=== PATIENT | female | born 1955 | race Two or more races ===

== ENCOUNTER 2021-02-12 14:07 | Emergency (ER) | payer SELFPAY ==
[~2021-02-12] VITALS: Ht 152.4 cm; Wt 90.9 kg
--- NOTE | 2021-02-12 14:29 | PHYS DOC ---
Past Medical History Past Medical History: Hypertension Past Surgical History: No Surgical History Smoking Status: Never Smoker Alcohol Use: None Drug Use: None General Adult EDM: Chief Complaint: SYNCOPE HPI: HPI: Patient is a 65 year old female who presents via EMS after a fall. She is here visiting from [place], she has only been here for the past several days, was planning to stay here through [place]. She was at the [employer], shopping, and she tripped and fell down about 3 steps. She hit the back of her head. Loss of consciousness was reported, however this was disputed by the patient and her family. She did not lose consciousness. There is no reported syncope. The report was a trip and slip and mechanical fall on arrival, EMS reports that she was awake, alert, crying but conversant. She was placed in a c-collar. The patient denies chest pain, dyspnea, palpitations, abdominal pain, nausea, vomiting. She does report some mild headache pain at her laceration site. She denies vision loss, vision changes. She denies neck pain or back pain. She den ies numbness or tingling or motor weakness. She reports that she was feeling well prior to this. She denies dizziness or vertigo. Review of Systems: Review of Systems: Constitutional: Denies fever or chills. [] Eyes: Denies change in visual acuity denies vision loss. HENT: Denies nasal congestion or sore throat. [] Respiratory: Denies cough or shortness of breath. [] Cardiovascular: Denies chest pain or edema, denies palpitations GI: Denies abdominal pain, nausea, vomiting, diarrhea : Denies incontinence or urinary symptoms. Musculoskeletal: Denies back pain or joint pain. [] Integument: Scalp laceration Neurologic: Reports headache at laceration site only, no global headache. He denies focal weakness or sensory changes. [] Psychiatric: Anxiety as it pertains to current clinical condition [] Heart Score: C/O Chest Pain: No Risk Factors: Risk Factors: DM, Current or recent (<one month) smoker, HTN, HLP, family history of CAD, obesity. Risk Scores: Score 0 - 3: 2.5% MACE over next 6 weeks - Discharge Home Score 4 - 6: 20.3% MACE over next 6 weeks - Admit for Clinical Observation Score 7 - 10: 72.7% MACE over next 6 weeks - Early Invasive Strategies Allergies: Allergies: Allergies Coded Allergies Type Severity Reaction Last Updated Verified No Known Drug Allergies 02/12/21 No Physical Exam: PE: Constitutional: Well developed, well nourished, no acute distress, non-toxic appearance. [] HENT: There is a small to moderate cephalhematoma on the right posterior parietal scalp, with overlying small laceration, approximately 1.5 cm, with minimal oozing, no brisk or active bleeding. Mild soft tissue tenderness. There is no palpable crepitus or step-offs. Oropharynx is patent and clear, mucous membranes are moist, no dental trauma noted. TMs are clear bilaterally, no hemotympanum. No otorrhea. Nares are patent without rhinorrhea or epistaxis. No midface or facial trauma or injury, no soft tissue swelling is noted. Eyes: PERRL, EOMI, conjunctiva normal, no discharge. No nystagmus. Neck: Normal range of motion, no tenderness, supple, no stridor. No soft tissue or bony tenderness, no midline tenderness or step-offs. Trachea is midline, no JVD Cardiovascular:Heart rate regular rhythm, +2 radial and +2 dorsalis pedis pulses bilaterally. Lungs & Thorax: Bilateral breath sounds clear to auscultation [] Abdomen: Bowel sounds normal, soft, no tenderness, no masses, no pulsatile masses. [] Skin: Small to moderate cephalhematoma on the right posterior parietal scalp, superficial laceration of the scalp, as above. Back: No tenderness, no deformity, no step-offs, no evidence of trauma Extremities: No tenderness, no cyanosis, no clubbing, ROM intact, no edema. No calf tenderness. Pelvis is stable. Full painless range of motion of bilateral upper and lower extremities. Neurologic: She is awake, alert, oriented x3, no facial asymmetry, speech is clear and fluent, 5 out of 5 motor strength all 4 extremities, sensation is grossly intact. Psychologic: She is anxious and tearful, she is cooperative and pleasant.. [] Current Patient Data: Labs: Laboratory Tests Test 02/12/21 14:13 Glucose (Fingerstick) 106 mg/dL (70-99) H EKG: EKG: EKG is interpreted at 1416 Rhythm is sinus Rate is 90 bpm [place] is normal No STEMI Radiology/Procedures: Radiology/Procedures: IMAGING REPORT Signed PATIENT: WINNIE CONNELLUNT: [id number] : 1955 LOCATION: ER AGE: 65 SEX: F EXAM STATUS: PRE ER ORD. PHYSICIAN: BAILEY COTA DO REASON: fall, scalp lac PROCEDURE: CT HEAD AND CERVICAL SPINE WO CT HEAD WITHOUT CONTRAST 02/12/2021 2:37 PM Indication: Reason: fall, scalp lac / Spl. Instructions: / History: Comparison: None Procedure: Multidetector CT imaging of the head was performed without the administration of contrast. Findings: There is a right posterior scalp hematoma and laceration. There is no evidence of acute intracranial hemorrhage. There is no evidence of acute territorial infarction. Please note that CT is limited for evaluation of acute ischemia. No mass effect or midline shift is identified . The ventricles and basilar cisterns have an appropriate appearance. No abnormal extra-axial fluid collections are seen. No acute osseous changes are identified. Impression: No evidence of acute intracranial abnormality CT cervical spine without contrast. 02/12/2021 2:37 PM Indication:Reason: fall, scalp lac / Spl. Instructions: / History: Comparison Study: None Technique: Multidetector CT imaging of the cervical spine was obtained without administration of contrast. Findings: There is no evidence of acute fracture or alignment abnormality of the cervical spine.. Vertebral body heights are maintained. There is degenerative change of the cervical spine including posterior disc/osteophyte complex at C5- C6. Mild diffuse facet arthrosis is noted. The atlantoaxial articulation and craniocervical junctions are intact. There is no prevertebral soft tissue swelling. Soft tissues are otherwise unremarkable. No bony compromise of the spinal canal is seen. Impression: No evidence of acute fracture or alignment abnormality of the cervical spine CT DOSING PQRS STATEMENT: One or more of the following individualized dose reduction techniques were utilized for this examination: 1. Automated exposure control 2. Adjustment of the mA and/or kV according to patient size 3. Use of iterative reconstruction technique Electronically signed by: Willard Noriega MD (02/12/2021 2:56 PM) [id number] DICTATED and SIGNED BY: WILLARD NORIEGA MD DATE: 02/12/21 [id number] Course & Med Decision Making: Course & Med Decision Making Pertinent Labs and Imaging studies reviewed. (See chart for details) I discussed the findings, differential diagnosis and plan of care with the patient. Emergency department work-up is unremarkable for any acute life- threatening process. I confirmed with the patient as well as multiple family members, that she did not sustain syncope or loss of consciousness, this was witnessed mechanical fall. She tolerated laceration repair well. She is anxiously awaiting discharge home. Her blood pressure is improved. She is smiling, resting comfortably, she feels much better. She declined any pain medicine here. I discussed home care and wound care instructions. The patient will be here until 21 February, she may return in approximately 1 week to have geno removed. Her grandson will make sure she returns here for this purpose. Very strict return precautions are given, the patient and her family verbalized understanding. Dragon Disclaimer: Dragon Disclaimer: This electronic medical record was generated, in whole or in part, using a voice recognition dictation system. Laceration Repair Lac Repair Indication: Scalp laceration Procedure: The patient was placed in the appropriate position, lying on the ED gurney, left lateral recumbent. 1% lidocaine with epinephrine was utilized for anesthesia, adequate anesthesia was achieved the area was then cleaned with Betadine and copiously irrigated with sterile normal saline. The laceration was posed utilizing 2 geno. Adequate hemostasis, wound eversion was achieved. Total repaired wound length: 1.5 cm The patient tolerated the procedure well Complications: None. Departure Departure Impression: Primary Impression: Fall Additional Impressions: Head injury Scalp laceration Scalp hematoma Disposition: HOME / SELF CARE / HOMELESS Condition: STABLE Patient Instructions: Facial or Scalp Contusion, Fall Prevention and Home Safety, Head Injury, Adult, Laceration Care, Adult Additional Instructions: Return to the ER in 7 or 8 days for staple removal. Return sooner for redness, swelling, pain, temperature 100.4 or higher, if you develop yellow or green wound drainage, if you have any new injury or trauma, shortness of breath, chest pain, vomiting or any other concerns. Keep your wound clean and dry, avoid brushing or combing your hair, gently rinse with water only. Pat dry. BAILEY COTA DO Feb 12, 2021 14:29
[2021-02-12 14:50] LABS: BASO % 1 % (0-3); EOS # 0.2 x10^3/uL (0.0-0.7); EOS % 5 % (0-3); HEMATOCRIT 37.2 % (36.0-47.0); HEMOGLOBIN 12.4 g/dL (12.0-15.5); LYMPH # 1.6 x10^3/uL (1.0-4.8); LYMPH % 34 % (24-48); MEAN CORPUSCULAR HEMOGLOBIN 29 pg (25-35); MEAN CORPUSCULAR HGB CONC 33 g/dL (31-37); MEAN CORPUSCULAR VOLUME 86 fL (79-100); MONO # 0.5 x10^3/uL (0.0-1.1); MONO % 11 % (0-9); NEUT # 2.4 x10^3/uL (1.8-7.7); NEUT % 50 % (31-73); PLATELET COUNT 210 x10^3/uL (140-400); RED BLOOD COUNT 4.33 x10^6/uL (3.50-5.40); RED CELL DISTRIBUTION WIDTH 14.5 % (11.5-14.5); WHITE BLOOD COUNT 4.8 x10^3/uL (4.0-11.0)
--- NOTE | 2021-02-12 14:59 | RAD ---
CT HEAD WITHOUT CONTRAST 02/12/2021 2:37 PM Indication: Reason: fall, scalp lac / Spl. Instructions: / History: Comparison: None Procedure: Multidetector CT imaging of the head was performed without the administration of contrast. Findings: There is a right posterior scalp hematoma and laceration. There is no evidence of acute int racranial hemorrhage. There is no evidence of acute territorial infarction. Please note that CT is li mited for evaluation of acute ischemia. No mass effect or midline shift is identified . The ventricle s and basilar cisterns have an appropriate appearance. No abnormal extra-axial fluid collections are seen. No acute osseous changes are identified. Impression: No evidence of acute intracranial abnormality CT cervical spine without contrast. 02/12/2021 2:37 PM Indication:Reason: fall, scalp lac / Spl. Instructions: / History: Comparison Study: None Technique: Multidetector CT imaging of the cervical spine was obtained without administration of cont rast. Findings: There is no evidence of acute fracture or alignment abnormality of the cervical spine.. [place] tebral body heights are maintained. There is degenerative change of the cervical spine including post erior disc/osteophyte complex at C5-C6. Mild diffuse facet arthrosis is noted. The atlantoaxial artic ulation and craniocervical junctions are intact. There is no prevertebral soft tissue swelling. Soft tissues are otherwise unremarkable. No bony compromise of the spinal canal is seen. Impression: No evidence of acute fracture or alignment abnormality of the cervical spine CT DOSING PQRS STATEMENT: One or more of the following individualized dose reduction techniques were utilized for this examinat ion: 1. Automated exposure control 2. Adjustment of the mA and/or kV according to patient size 3. Use of iterative reconstruction technique Electronically signed by: Willard Tyler MD (02/12/2021 2:56 PM) [id number]
[2021-02-12 15:16] LABS: CALCIUM 8.4 mg/dL (8.5-10.1); CREATININE 0.5 mg/dL (0.6-1.0); GFR 123.1; POTASSIUM 5.1 mmol/L (3.5-5.1)
[2021-02-12 15:22] LABS: ALBUMIN 3.1 g/dL (3.4-5.0); ALBUMIN/GLOBULIN RATIO 0.6 (1.0-1.7); MAGNESIUM 1.9 mg/dL (1.8-2.4); TOTAL BILIRUBIN 0.5 mg/dL (0.2-1.0); TOTAL PROTEIN 7.9 g/dL (6.4-8.2)
--- NOTE | 2021-02-12 15:25 | RAD ---
EXAM: Chest, single view. HISTORY: Syncope. COMPARISON: None. FINDINGS: A frontal view of the chest is obtained. There is no infiltrate, pleural effusion or pneumo thorax. There is a prominent cardiac silhouette, likely accentuated due to portable technique. IMPRESSION: No acute pulmonary finding. Electronically signed by: Bessy Freeman MD (02/12/2021 3:22 PM) [id number]
[2021-02-12] MEDS ORDERED: LIDOCAINE 1%/EPI 1:100,000 20 ML VIAL. INJ ONE (16:00)
[2021-02-12 16:02] VITALS: BP 154/82
--- NOTE | 2021-02-12 18:19 | EKG ---
[facility] [address] [place] [address] Test Date: 2021-02-12 Test Time: 14:16:50 Pat Name: RED Parosnartment: Room: Gender: F [employer]: : 1955 Requested By: BAILEY COTA Order Number: [id number] Reading MD: Measurements Intervals [place] Rate: 90 P: 66 AR: 170 QRS: 53 QRSD: 76 T: 12 QT: 338 QTc: 417 Interpretive Statements SINUS RHYTHM QRS(T) CONTOUR ABNORMALITY CONSIDER ANTEROSEPTAL MYOCARDIAL DAMAGE T ABNORMALITY IN ANTERIOR LEADS ABNORMAL ECG RI6.01 No previous ECG available for comparison
== END 2021-02-12 17:01 | disposition home or self-care (01) ==
LOC: ER 14:07
DX: S01.01XA Laceration without foreign body of scalp, initial encounter (principal); R55 Syncope and collapse; I10 Essential (primary) hypertension; W10.8XXA Fall (on) (from) other stairs and steps, initial encounter; Y93.89 Activity, other specified; Y92.89 Other specified places as the place of occurrence of the external cause; Y99.8 Other external cause status
CPT/HCPCS: 12001; 36415; 70450; 71045; 72125; 80053; 82962; 83735; 84100; 84484; 85025; 93005; 99285; J3490

== ENCOUNTER 2021-02-19 11:47 | Emergency (ER) | payer SELFPAY ==
[~2021-02-19] VITALS: Ht 160 cm; Wt 68.0 kg
[2021-02-19 12:00] VITALS: BP 160/77
--- NOTE | 2021-02-19 13:06 | PHYS DOC ---
Past Medical History Past Medical History: Hypertension Past Surgical History: No Surgical History Smoking Status: Never Smoker Alcohol Use: None Drug Use: None General Adult EDM: Chief Complaint: SUTURE/STAPLE REMOVAL HPI: HPI: Patient is a 65 year old female who presents with staple removal. Patient denies any complications or pain. No signs of infection. Review of Systems: Review of Systems: ROS At least 10 ROS systems have been reviewed and are negative except as documented in the HPI. General: Negative except as outlined in HPI above. Skin: Negative except as outlined in HPI above. HEENT: Negative except as outlined in HPI above. Neck: Negative except as outlined in HPI above. Respiratory: Negative except as outlined in HPI above.. Cardiovascular: Negative except as outlined in HPI above. Abdomen: Negative except as outlined in HPI above. : Negative except as outlined in HPI above. Back/MSK: Negative except as outlined in HPI above. Neuro: Negative except as outlined in HPI above. Psych: Negative except as outlined in HPI above. Heart Score: C/O Chest Pain: No Risk Factors: Risk Factors: DM, Current or recent (<one month) smoker, HTN, HLP, family history of CAD, obesity. Risk Scores: Score 0 - 3: 2.5% MACE over next 6 weeks - Discharge Home Score 4 - 6: 20.3% MACE over next 6 weeks - Admit for Clinical Observation Score 7 - 10: 72.7% MACE over next 6 weeks - Early Invasive Strategies Allergies: Allergies: Allergies Coded Allergies Type Severity Reaction Last Updated Verified No Known Drug Allergies 02/12/21 No Physical Exam: PE: Constitutional: Well developed, well nourished, no acute distress, non-toxic appearance. [] HENT: Normocephalic, atraumatic, bilateral external ears normal, oropharynx moist, no oral exudates, nose normal. [] Eyes: PERRLA, EOMI, conjunctiva normal, no discharge. [] Neck: Normal range of motion, no tenderness, supple, no stridor. [] Cardiovascular:Heart rate regular rhythm, no murmur [] Lungs & Thorax: Bilateral breath sounds clear to auscultation [] Abdomen: Bowel sounds normal, soft, no tenderness, no masses, no pulsatile masses. [] Skin: Geno on the right side of head Back: No tenderness, no CVA tenderness. [] Extremities: No tenderness, no cyanosis, no clubbing, ROM intact, no edema. [] Neurologic: Alert and oriented X 3, normal motor function, normal sensory function, no focal deficits noted. [] Psychologic: Affect normal, judgement normal, mood normal. [] Current Patient Data: Vital Signs: Vital Signs Date Time Temp Pulse Resp B/P (MAP) Pulse Ox O2 Delivery O2 Flow Rate FiO2 02/19/21 12:00 98.2 92 18 160/77 (104) 95 Room Air 98.2 EKG: EKG: [] Radiology/Procedures: Radiology/Procedures: [] Course & Med Decision Making: Course & Med Decision Making Pertinent Labs and Imaging studies reviewed. (See chart for details) [] 65-year-old female presents to the ER for geno removed. No signs of infection noted. Denies pain and complications. Discussed aftercare instructions with patient. Dragon Disclaimer: Dragon Disclaimer: This electronic medical record was generated, in whole or in part, using a voice recognition dictation system. Departure Departure Impression: Primary Impression: Removal of staple Disposition: 01 HOME / SELF CARE / HOMELESS Condition: STABLE Referrals: NO PCP (PCP) Patient Instructions: Staple Removal, Care After Additional Instructions: You were seen in the emergency room for geno removed. Please return the emergency room for worsening symptoms or concerns. EMERGENCY DEPARTMENT GENERAL DISCHARGE INSTRUCTIONS Thank you for coming to [facility] Emergency Department (ED) today and trusting us with you care. We trust that you had a positive experience in our Emergency Department. If you wish to speak to the department management, you may call the Director at [phone]. YOUR FOLLOW UP INSTRUCTIONS ARE FOLLOWS: 1. Do you have a private Doctor? If you do not have a private doctor, please ask for a resource list of physicians or clinics that may be able to assist you with follow up care. 2. The Emergency Physicain has interpreted your x-rays. The X-Ray specialist will also review them. If there is a change in the findings, you will be notified in 48 hours when at all possible. 3. A lab test or culture has been done, your results will be reviewed and you will be notified if you need a change in treatment. ADDITIONAL INSTRUCTIONS AND INFORMATION: 1. Your care today has been supervised by a physician who is specially trained in emergency care. Many problems require more than one evaluation for a complete diagnosis and treatment. We recommend that you schedule your follow up appointment as recommended to ensure complete treatment of you illness or injury. If you are unable to obtain follow up care and continue to have a problem, or if your condition worsens, we recommend that you return to the ED. 2. We are not able to safely determine your condition over the phone nor are we able to give sound medical advice over the phone. For these safety reasons, if you call for medical advice we will ask you to come to the ED for further evaluation. 3. If you have any questions regarding these discharge instructions please call the ED at [phone]. SAFETY INFORMATION: In the interest of safety, wellness, and injury prevention; we encourage you to wear your sealbelt, if you smoke; quite smoking, and we encourage family to use a protective helmet for bicycling and other sporting events that present an increased risk for head injury. IF YOUR SYMPTOMS WORSEN OR NEW SYMPTOMS DEVELOP, OR YOU HAVE CONCERNS ABOUT YOUR CONDITION; OR IF YOUR CONDITION WORSENS WHILE YOU ARE WAITING FOR YOUR FOLLOW UP APPOINTMENT; EITHER CONTACT YOUR PRIMARY CARE DOCTOR, THE PHYSICIAN WHOSE NAME AND NUMBER YOU WERE GIVEN, OR RETURN TO THE ED IMMEDIATELY. SENG ARTEAGA APRN Feb 19, 2021 13:06
== END 2021-02-19 13:00 | disposition home or self-care (01) ==
LOC: ER 11:47
DX: S01.01XD Laceration without foreign body of scalp, subsequent encounter (principal); I10 Essential (primary) hypertension; X58.XXXD Exposure to other specified factors, subsequent encounter
CPT/HCPCS: 99281